=== PATIENT | female | born 1980 | race Two or more races ===

== ENCOUNTER 2017-04-24 10:36 | Inpatient (IN) | payer MEDICAID, OTHER ==
[~2017-04-24] VITALS: Ht 154.9 cm; Wt 43.5 kg
[2017-04-24 09:24] VITALS: BP 114/71
[~2017-04-24 10:36] MED LIST: HALOPERIDOL 5 MG TABLET PO PRN; HYDR-4031 PO; LORazepam 2 MG TABLET PO PRN; ZOLPIDEM TARTRATE 10 MG TABLET PO PRN
[2017-04-24] MEDS ORDERED: INFLUENZA VIRUS VACCINE QVS 2017-18 (3YR+)/PF 60 MCG/0.5 ML SYRINGE IM ONE (10:45)
[2017-04-24] MEDS ORDERED: LORazepam 1 MG TABLET PO PRN (10:53)
[2017-04-24 11:44] LABS: BASOPHILS % (AUTO) 0.8 % (0.0-2.0); EOSINOPHILS % (AUTO) 0.8 % (1.0-6.0); HEMATOCRIT 40.1 % (36-46); HEMOGLOBIN 13.8 g/dL (12.0-16.0); LYMPHOCYTES # (AUTO) 1.1 K/uL (1.0-4.8); LYMPHOCYTES % (AUTO) 25.8 % (22.0-44.0); MEAN CORPUSCULAR HEMOGLOBIN 30.2 pg (26.0-34.0); MEAN CORPUSCULAR HGB CONC 34.5 G/dL (31.0-37.0); MEAN CORPUSCULAR VOLUME 87 fL (80-100); MONOCYTES # (AUTO) 0.4 K/uL (0.1-1.0); NEUTROPHILS # (AUTO) 2.5 K/uL (1.8-7.7); NEUTROPHILS % (AUTO) 61.6 % (40.0-70.0); PLATELET COUNT (AUTO) 209 K/uL (150-450); RED BLOOD CELL COUNT(AUTO) 4.59 MIL/uL (4.00-5.20); RED CELL DISTRIBUTION WIDTH 12.4 % (11.5-14.5)
[2017-04-24 12:05] LABS: ANION GAP 10 mmol/L (8-16); CALCIUM, TOTAL 8.8 mg/dL (8.8-10.5); CARBON DIOXIDE 27 mmol/L (22-29); CHLORIDE 104 mmol/L (98-107); CREATININE 0.67 mg/dL (0.60-1.30); GLOMERULAR FILTR. RATE CALC > 60 mL/min (>60); GLUCOSE,RANDOM 88 mg/dL (70-110); POTASSIUM 4.1 mmol/L (3.5-5.1); SODIUM SERUM 141 mmol/L (136-145); UREA NITROGEN, BLOOD 12 mg/dL (7-18)
[2017-04-24 12:09] LABS: ALANINE AMINOTRANSFERASE 14 U/L (12-78); ALBUMIN 4.1 g/dL (3.4-5.0); ALKALINE PHOSPHATASE 80 U/L (46-116); ASPARTATE AMINOTRANSFERASE 11 U/L (15-37); BILIRUBIN,TOTAL 0.3 mg/dL (0.1-1.0); TOTAL PROTEIN, SERUM 7.6 g/dL (6.4-8.2)
[2017-04-24 16:16] VITALS: BP 109/67
[2017-04-24] MEDS ORDERED: ZOLPIDEM TARTRATE 5 MG TABLET PO PRN (17:14)
[2017-04-24] MEDS ORDERED: IBUPROFEN 400 MG TABLET PO PRN (17:15)
[2017-04-24] MEDS ORDERED: ACETAMINOPHEN 325 MG TABLET PO PRN (17:15)
[2017-04-24 20:02] VITALS: BP 102/69
[2017-04-24] MEDS: OLANZapine 5 MG RAPDIS TABLET PO SCH (21:20)
[2017-04-24 21:36] VITALS: BP 112/73
[2017-04-25 05:13] VITALS: BP 108/62
[2017-04-25 08:17] LABS: BASOPHILS % (AUTO) 0.4 % (0.0-2.0); EOSINOPHILS % (AUTO) 2.2 % (1.0-6.0); HEMATOCRIT 38.6 % (36-46); HEMOGLOBIN 13.2 g/dL (12.0-16.0); LYMPHOCYTES # (AUTO) 1.3 K/uL (1.0-4.8); LYMPHOCYTES % (AUTO) 40.7 % (22.0-44.0); MEAN CORPUSCULAR HGB CONC 34.3 G/dL (31.0-37.0); MEAN CORPUSCULAR VOLUME 87 fL (80-100); MONOCYTES # (AUTO) 0.5 K/uL (0.1-1.0); MONOCYTES % (AUTO) 14.6 % (2.0-9.0); NEUTROPHILS # (AUTO) 1.4 K/uL (1.8-7.7); NEUTROPHILS % (AUTO) 42.1 % (40.0-70.0); PLATELET COUNT (AUTO) 206 K/uL (150-450); RED BLOOD CELL COUNT(AUTO) 4.41 MIL/uL (4.00-5.20); RED CELL DISTRIBUTION WIDTH 12.5 % (11.5-14.5)
[2017-04-25 08:41] VITALS: BP 108/63
[2017-04-25 08:53] LABS: ALANINE AMINOTRANSFERASE 12 U/L (12-78); ALBUMIN 3.6 g/dL (3.4-5.0); ALKALINE PHOSPHATASE 70 U/L (46-116); ANION GAP 7 mmol/L (8-16); ASPARTATE AMINOTRANSFERASE 9 U/L (15-37); BILIRUBIN,TOTAL 0.3 mg/dL (0.1-1.0); CALCIUM, TOTAL 8.6 mg/dL (8.8-10.5); CARBON DIOXIDE 30 mmol/L (22-29); CHLORIDE 107 mmol/L (98-107); CHOL/HDL RATIO 2.3 (3.9-5.7); CHOLESTEROL 126 mg/dL (131-200); FREE T4 (FREE THYROXINE) 1.06 ng/dL (0.76-1.46); GLOMERULAR FILTR. RATE CALC > 60 mL/min (>60); GLUCOSE,RANDOM 80 mg/dL (70-110); HDL CHOLESTEROL 54 mg/dL (40-60); LDL CHOL (CALC.) 66 mg/dL (0-130); POTASSIUM 4.3 mmol/L (3.5-5.1); SODIUM SERUM 144 mmol/L (136-145); THYROID STIMULATING HORMONE 0.93 uIU/mL (0.36-3.74); TOTAL PROTEIN, SERUM 6.7 g/dL (6.4-8.2); TRIGLYCERIDES 28 mg/dL (15-150); UREA NITROGEN, BLOOD 12 mg/dL (7-18)
[2017-04-25 09:05] LABS: HEMOGLOBIN A1C 5.2 % (4.5-6.2)
[2017-04-25] MEDS: FLUoxetine HCL 20 MG CAPSULE PO SCH (09:09)
[2017-04-25 16:37] VITALS: BP 111/75
[2017-04-25] MEDS: OLANZapine 5 MG RAPDIS TABLET PO SCH (20:07)
[2017-04-26 05:23] VITALS: BP 116/64
[2017-04-26] MEDS: FLUoxetine HCL 20 MG CAPSULE PO SCH (08:32)
[2017-04-26 08:36] VITALS: BP 100/60
[2017-04-26 16:06] VITALS: BP 107/71
[2017-04-26] MEDS: OLANZapine 10 MG RAPDIS TABLET PO SCH (20:07)
[2017-04-27 01:29] VITALS: BP 112/82
[2017-04-27 08:05] VITALS: BP 104/76
[2017-04-27] MEDS: FLUoxetine HCL 20 MG CAPSULE PO SCH (08:38)
[2017-04-27] MEDS: FOLIC ACID 1 MG TABLET PO SCH (08:39)
[2017-04-27 16:20] VITALS: BP 115/74
[2017-04-27] MEDS: OLANZapine 10 MG RAPDIS TABLET PO SCH (20:00)
[2017-04-28 06:25] VITALS: BP 115/92
[2017-04-28 08:32] VITALS: BP 120/73
[2017-04-28] MEDS: FOLIC ACID 1 MG TABLET PO SCH (08:39)
[2017-04-28] MEDS: FLUoxetine HCL 20 MG CAPSULE PO SCH (08:39)
[2017-04-28 16:22] VITALS: BP 118/86
[2017-04-28] MEDS: OLANZapine 10 MG RAPDIS TABLET PO SCH (20:04)
[2017-04-29 00:58] VITALS: BP 116/72
[2017-04-29 08:10] VITALS: BP 121/91
[2017-04-29 08:26] LABS: BASOPHILS % (AUTO) 0.4 % (0.0-2.0); EOSINOPHILS % (AUTO) 1.5 % (1.0-6.0); HEMATOCRIT 38.8 % (36-46); HEMOGLOBIN 13.2 g/dL (12.0-16.0); LYMPHOCYTES # (AUTO) 1.3 K/uL (1.0-4.8); LYMPHOCYTES % (AUTO) 33.3 % (22.0-44.0); MEAN CORPUSCULAR HEMOGLOBIN 29.8 pg (26.0-34.0); MEAN CORPUSCULAR VOLUME 88 fL (80-100); MONOCYTES # (AUTO) 0.3 K/uL (0.1-1.0); MONOCYTES % (AUTO) 7.7 % (2.0-9.0); NEUTROPHILS # (AUTO) 2.2 K/uL (1.8-7.7); NEUTROPHILS % (AUTO) 57.1 % (40.0-70.0); PLATELET COUNT (AUTO) 210 K/uL (150-450); RED BLOOD CELL COUNT(AUTO) 4.43 MIL/uL (4.00-5.20); RED CELL DISTRIBUTION WIDTH 12.1 % (11.5-14.5)
[2017-04-29] MEDS: FLUoxetine HCL 20 MG CAPSULE PO SCH (08:33)
[2017-04-29] MEDS: FOLIC ACID 1 MG TABLET PO SCH (08:33)
[2017-04-29] MEDS ORDERED: OLAN10TA6 PO (10:31)
[2017-04-29] MEDS ORDERED: FLUO-191 PO (10:31)
== END 2017-04-29 11:00 | disposition home or self-care (01) | DRG 750 ==
LOC: EMS 10:38 → AHU 15:12 → B2S 20:12
PROVIDERS: ADMIT Psychiatry & Neurology Psychiatry; ATTEND Psychiatry & Neurology Psychiatry
PROC: 3E0234Z Introduction of Serum, Toxoid and Vaccine into Muscle, Percutaneous Approach (ICD-10-PCS; principal; 2017-04-24)
DX: F25.1 Schizoaffective disorder, depressive type (principal); R45.851 Suicidal ideations; F29 Unspecified psychosis not due to a substance or known physiological condition; F32.9 Major depressive disorder, single episode, unspecified; D72.819 Decreased white blood cell count, unspecified; F41.9 Anxiety disorder, unspecified; G47.00 Insomnia, unspecified; Z91.19 Patient's noncompliance with other medical treatment and regimen; Z82.49 Family history of ischemic heart disease and other diseases of the circulatory system; Z23 Encounter for immunization
CPT/HCPCS: 83036; 84439; 84443; 90471; 99285; G0480

== ENCOUNTER 2025-02-14 12:13 | Inpatient (IN) | payer MEDICAID ==
[~2025-02-14] VITALS: Ht 152.4 cm; Wt 42.2 kg
[~2025-02-14 12:13] MED LIST changes: +FLUO-177 PO; -HALOPERIDOL 5 MG TABLET PO PRN; -HYDR-4031 PO; -LORazepam 2 MG TABLET PO PRN; +OLAN10TA26 PO; -ZOLPIDEM TARTRATE 10 MG TABLET PO PRN
[2025-02-14 13:56] LABS: GLUCOMETER DEV NAME(LOC) POC.BV; POC SARS-COV2 AG, FIA NEGATIVE (NEGATIVE)
[2025-02-14 16:49] VITALS: BP 108/78; PULSE 78; RESP 18; TEMP 97.6; O2SAT 100
[2025-02-14] MEDS ORDERED: DOCUSATE SODIUM 100 MG CAPSULE PO PRN (18:45)
[2025-02-14] MEDS ORDERED: MAGNESIUM HYDROXIDE SUSPENSION 30 ML UDCUP PO PRN (18:45)
[2025-02-14] MEDS ORDERED: ACETAMINOPHEN 325 MG TABLET PO PRN (18:45)
[2025-02-14] MEDS ORDERED: MAG HYDROX/ALUMINUM HYD/SIMETH ES 30 ML SUSPENSION UDCUP PO PRN (18:45)
[2025-02-14] MEDS ORDERED: NICOTINE 14 MG/24 HOUR PATCH TD PRN (18:45)
[2025-02-14] MEDS ORDERED: ALBUTEROL SULFATE HFA 90 MCG/PUFF 8 GM INHALER IH PRN (18:45)
[2025-02-14] MEDS ORDERED: PETROLATUM,WHITE 28 GM JELLY TP PRN (18:45)
[2025-02-14] MEDS ORDERED: GuaiFENesin/D-METHORPHAN [SUGAR-FREE] 200-20MG/10 ML SYRUP UDCUP PO PRN (18:45)
[2025-02-14] MEDS ORDERED: LOPERAMIDE HCL 2 MG CAPSULE PO PRN (18:45)
[2025-02-14] MEDS ORDERED: IBUPROFEN 400 MG TABLET PO PRN (18:45)
[2025-02-14] MEDS: ONDANSETRON 4 MG TABLET PO PRN (19:44)
[2025-02-14 20:24] VITALS: BP 113/56; PULSE 78; RESP 17; TEMP 97.5; O2SAT 100
[2025-02-14] MEDS: ZOLPIDEM TARTRATE 10 MG TABLET PO PRN (20:46)
[2025-02-15 08:39] VITALS: BP 97/65; PULSE 68; RESP 16; TEMP 98.1; O2SAT 99
[2025-02-15 12:38] LABS: PLATELET COUNT (AUTO) 212 K/uL (150-450); RED BLOOD CELL COUNT(AUTO) 4.20 MIL/uL (4.00-5.20); RED CELL DISTRIBUTION WIDTH 12.9 % (11.5-14.5); WHITE BLOOD COUNT (AUTO) 3.6 K/uL (4.5-11.0)
[2025-02-15 13:05] LABS: ASPARTATE AMINOTRANSFERASE 13 U/L (15-37); CALCIUM, TOTAL 9.1 mg/dL (8.8-10.5); CHOL/HDL RATIO 2.7 (3.9-5.7); CREATININE 0.64 mg/dL (0.60-1.30); GLOMERULAR FILTR. RATE CALC > 60 mL/min (>60); GLUCOSE,RANDOM 83 mg/dL (70-110); LDL CHOL (CALC.) 104 mg/dL (0-130); SODIUM SERUM 141 mmol/L (136-145); TOTAL PROTEIN, SERUM 6.9 g/dL (6.4-8.2); UREA NITROGEN, BLOOD 17 mg/dL (7-18)
[2025-02-15 14:25] LABS: ALCOHOL, BLOOD (SERUM) < 3 mg/dL (0-10)
[2025-02-15 20:13] VITALS: BP 102/68; PULSE 67; RESP 17; TEMP 97.8; O2SAT 97
[2025-02-16 10:06] VITALS: BP 101/65; PULSE 90; RESP 16; TEMP 97.3; O2SAT 98
[2025-02-16 20:15] VITALS: BP 106/69; PULSE 77; RESP 17; TEMP 98.1; O2SAT 98
[2025-02-17 08:15] VITALS: PULSE 78; RESP 16; TEMP 98.9; O2SAT 100
[2025-02-17 20:08] VITALS: RESP 18
[2025-02-18 08:05] VITALS: BP 100/60; PULSE 69; RESP 16; TEMP 99; O2SAT 100
[2025-02-18] MEDS ORDERED: OLAN5TAB52 PO (11:38)
== END 2025-02-18 14:48 | disposition home or self-care (01) | DRG 751 ==
LOC: B2S 13:34
PROVIDERS: ADMIT Psychiatry & Neurology Child & Adolescent Psychiatry; ATTEND Psychiatry & Neurology Child & Adolescent Psychiatry
PROC: GZ58ZZZ Individual Psychotherapy, Cognitive-Behavioral (ICD-10-PCS; principal; 2025-02-15)
PROC: GZ56ZZZ Individual Psychotherapy, Supportive (ICD-10-PCS; 2025-02-15)
DX: F33.2 Major depressive disorder, recurrent severe without psychotic features (principal); E44.0 Moderate protein-calorie malnutrition; D72.819 Decreased white blood cell count, unspecified; Z20.822 Contact with and (suspected) exposure to COVID-19; F41.9 Anxiety disorder, unspecified; G47.00 Insomnia, unspecified; F12.90 Cannabis use, unspecified, uncomplicated; Z79.899 Other long term (current) drug therapy; Z68.1 Body mass index [BMI] 19.9 or less, adult; Z91.199 Patient's noncompliance with other medical treatment and regimen due to unspecified reason
CPT/HCPCS: 80053; 80061; 83036; 84436; 84439; 84443; 84703; 85025; G0480; Q0162